=== PATIENT | male | born 1955 | race Caucasian/White ===

== ENCOUNTER → 2021-04-17 16:25 | Outpatient (CLI) | payer OTHER, SELFPAY ==
--- NOTE | 2021-04-17 16:31 | US_ITS ---
STUDY: SUPERFICIAL ULTRASOUND - RIGHT KNEE REASON FOR EXAM: Male, 65 years old. KNEE SWELLING TECHNIQUE: A superficial ultrasound was performed with real-time and static morrison-scale imaging. COMPARISON: None. FINDINGS: 5.9 x 2.9 x 1.8 cm nonvascular fluid collection with minimal complexity consistent with popliteal cyst. US/Ext Non Vasc Limited/Soft Tiss IMPRESSION: 5.9 x 2.9 x 1.8 cm right popliteal fossa cyst. Electronically Signed: Freda Bradley MD at 23:14 EDT , Service support ,
== END ==
PROVIDERS: PCP Registered Nurse; Referring Provider Registered Nurse; Visit Provider Registered Nurse
DX: M25.469 Effusion, unspecified knee (principal)
CPT/HCPCS: 76882